=== PATIENT | female | born 1990 | race Two or more races ===

== ENCOUNTER 2018-07-09 11:51 | Emergency (ER) | payer MEDICAID ==
[~2018-07-09] VITALS: Ht 157.5 cm; Wt 104.3 kg
[~2018-07-09 11:51] MED LIST: PREN-96 PO
[2018-07-09 13:51] VITALS: BP 117/79
[2018-07-09] MEDS ORDERED: KETOROLAC TROMETH 60MG/2ML VIAL IM ONE (14:00)
== END 2018-07-09 14:34 | disposition home or self-care (01) ==
LOC: ER 12:03
DX: M54.5 Low back pain (principal); G89.29 Other chronic pain; F17.210 Nicotine dependence, cigarettes, uncomplicated; M79.661 Pain in right lower leg; Z88.2 Allergy status to sulfonamides; X50.1XXA Overexertion from prolonged static or awkward postures, initial encounter; Y93.89 Activity, other specified; Y92.89 Other specified places as the place of occurrence of the external cause; Y99.8 Other external cause status
CPT/HCPCS: 96372; 99283; J1885

== ENCOUNTER 2018-09-06 20:03 | Emergency (ER) | payer MEDICAID ==
[~2018-09-06] VITALS: Ht 157.5 cm; Wt 104.3 kg
[2018-09-06 20:30] VITALS: BP 97/64
[2018-09-06] MEDS ORDERED: cefTRIAXone SOD 1,000 MG VL IM ONE (21:00)
[2018-09-06] MEDS ORDERED: methylPREDNISolone SOD SUCC 125 MG/2 ML VL IM ONE (21:00)
[2018-09-06] MEDS ORDERED: EPINEPHrine HCL 1 MG/1 ML AMP SC ONE (21:00)
== END 2018-09-06 22:23 | disposition home or self-care (01) ==
LOC: ER 20:11
DX: J03.90 Acute tonsillitis, unspecified (principal); Z88.2 Allergy status to sulfonamides
CPT/HCPCS: 70360; 96372; 99283; J0171; J0696; J2930